=== PATIENT | female | born 1955 | race African-American/Black ===

== ENCOUNTER 2018-02-11 09:05 | Emergency (ER) | payer OTHER ==
[2018-02-11 09:11] VITALS: BP 116/69; PULSE 90; TEMP 98.3; BMI 29.0
--- NOTE | 2018-02-11 09:49 | PDOC ---
History of Present Illness - General Chief Complaint: Injury Stated Complaint: FOOT INJURY Time Seen by Provider: 02/11/18 09:40 History Source: Patient Exam Limitations: Clinical Condition - History of Present Illness Initial Comments: 02/11/18 09:47 Patient with no significant past medical history present with complain of pain to left fourth and fifth toes status post hitting it on a chair 3 days ago. Patient reported increased pain with ambulation. Denies any open wounds. Denies any other symptoms Timing/Duration: other (3 days) Past History - Past Medical History Allergies/Adverse Reactions: Allergies Allergy/AdvReac Type Severity Reaction Status Date / Time No Known Allergies Allergy Verified 02/11/18 09:09 Home Medications: Ambulatory Orders Ibuprofen 800 mg PO Q8H PRN #12 tablet 02/11/18 COPD: No - Immunization History Immunization Up to Date: No - Suicide/Smoking/Psychosocial Hx Smoking History: Never smoked Information on smoking cessation initiated: No Hx Alcohol Use: No Drug/Substance Use Hx: No Substance Use Type: None Review of Systems - Review of Systems Able to Perform ROS?: Yes Is the patient limited [place]uran proficient: No Constitutional: No: Chills, Diaphoresis, Fever, Loss of Appetite, Malaise, Night Sweats, Weakness, Weight Stable, Unintentional Wgt. Loss, Unexplained wgt Loss, Other HEENTM: No: Eye Pain, Blurred Vision, Tearing, Recent change in vision, Double Vision, Cataracts, Ear Pain, Ocular Prothesis, Ear Discharge, Nose Pain, Nose Congestion, Tinnitus, Nose Bleeding, Hearing Loss, Throat Pain, Throat Swelling , Mouth Pain, Dental Problems, Difficulty Swallowing, Mouth Swelling, Other Respiratory: No: Cough, Orthopnea, Shortness of Breath, SOB with Exertion, SOB at Rest, Stridor, Wheezing, Productive cough, Hemoptysis, Other Cardiac (ROS): No: Chest Pain, Edema, Irregular Heart Rate, Lightheadedness, Palpitations, Syncope, Chest Tightness, Other ABD/GI: No: Abdominal Distended, Abd. Pain w/ defecation, Blood Streaked Bowels , Constipated, Diarrhea, Difficulty Swallowing, Nausea, Poor Appetite, Poor Fluid Intake, Rectal Bleeding, Vomiting, Indigestion, Abdominal cramping, Tarry Stools, Other Musculoskeletal: Yes: See HPI, Joint Pain (left toes), Joint Swelling, Muscle Pain (left 4th and 5th toe). No: Muscle Weakness, Joint Stiffness All Other Systems: Reviewed and Negative *Physical Exam - Vital Signs Last Vital Signs Temp Pulse Resp BP Pulse Ox 98.3 F 90 18 116/69 100 02/11/18 09:09 02/11/18 09:09 02/11/18 09:09 02/11/18 09:09 02/11/18 09:09 - Physical Exam Comments: 02/11/18 09:49 GENERAL: Well developed, well nourished. Awake and alert. No acute distress. HEENT: Normocephalic, atraumatic. PERRLA, EOMI. No conjunctival pallor. Sclera are non- icteric. Moist mucous membranes. Oropharynx is clear. NECK: Supple. Full ROM. No JVD. Carotid pulses 2+ and symmetric, without bruits. No thyromegaly. No lymphadenopathy. CARDIOVASCULAR: Regular rate and rhythm. No murmurs, rubs, or gallops. Distal pulses are 2+ and symmetric. PULMONARY: No evidence of respiratory distress. Lungs clear to auscultation bilaterally. No wheezing, rales or rhonchi. ABDOMINAL: Soft. Non-tender. Non-distended. No rebound or guarding. No organomegaly. Normoactive bowel sounds. MUSCULOSKELETAL Normal range of motion at all joints. No bony deformities or tenderness. No CVA tenderness. EXTREMITIES: Moderate tenderness over the MCP and phalanges of left fourth and fifth toes and lateral distal side of left foot. No erythema or swelling to area. No cyanosis. No clubbing. No edema. No calf tenderness. SKIN: Warm and dry. Normal capillary refill. No rashes. No jaundice. NEUROLOGICAL: Alert, awake, appropriate. Cranial nerves 2-12 intact. No deficits to light touch and temperature in face, upper extremities and lower extremities. No motor deficits in the in face, upper extremities and lower extremities. Normoreflexic in the upper and lower extremities. Normal speech. Toes are down- going bilaterally. Gait is normal without ataxia. PSYCHIATRIC: Cooperative. Good eye contact. Appropriate mood and affect. General Appearance: Yes: Nourished, Appropriately Dressed. No: Apparent Distress Medical Decision Making - Medical Decision Making 02/11/18 09:51 Patient with no sig Past medical history present with complain of pain to left fourth and fifth toes status post toe contusion 3 days ago. Exam shows moderate tenderness to follow injuries of left fourth and fifth toe and lateral aspect of distal left foot. X-ray of left foot ordered to rule out any acute fracture. Treat based on imaging results 02/11/18 10:13 X-ray of left foot shows no acute fracture or pathology. Symptoms likely foot and toe sprain. Patient be discharged home on NSAIDs for symptoms with orthopedist follow-up as needed *DC/Admit/Observation/Transfer Diagnosis at time of Disposition: Sprain of foot, left Qualifiers: Encounter type: initial encounter Qualified Code(s): S93.602A - Unspecified sprain of left foot, initial encounter Contusion of toe of left foot Qualifiers: Encounter type: initial encounter Toe: lesser toe Damage to nail status: without damage Qualified Code(s): S90.122A - Contusion of left lesser toe(s) without damage to nail, initial encounter - Discharge Dispostion Disposition: HOME Condition at time of disposition: Stable Decision to Admit order: No - Prescriptions Prescriptions: Ibuprofen 800 mg PO Q8H PRN #12 tablet PRN Reason: toe pain - Referrals Referrals: Jarrett Lainez MD [Primary Care Provider] - Blake Franks MD [Staff Physician] - - Patient Instructions Printed Discharge Instructions: Contusion Additional Instructions: Take prescribed medication as needed for pain. Soak left foot in Epsom salts water to help was swelling and pain. Follow-up with podiatry as needed if symptoms persist for more than 5 days - Post Discharge Activity
== END 2018-02-11 10:20 | disposition home or self-care (01) ==
LOC: JERFT 09:05
DX: S93.602A Unspecified sprain of left foot, initial encounter (principal); S90.122A Contusion of left lesser toe(s) without damage to nail, initial encounter; W22.09XA Striking against other stationary object, initial encounter; Y93.89 Activity, other specified; Y92.89 Other specified places as the place of occurrence of the external cause; Y99.8 Other external cause status
CPT/HCPCS: 73630-TC-LT; 99281-25

== ENCOUNTER 2019-01-01 18:09 | Emergency (ER) | payer OTHER ==
--- NOTE | 2019-01-01 18:39 | PDOC ---
Rapid Medical Evaluation Time Seen by Provider: 01/01/19 18:35 Medical Evaluation: Allergies Allergy/AdvReac Type Severity Reaction Status Date / Time No Known Allergies Allergy Verified 02/11/18 09:09 01/01/19 18:37 This patient had a brief in-person evaluation in triage CC: swelling to right side of forehead above the eye since Sunday denies blurred vision, eye pain fever or chills PE: NAD +swelling above right eyebrow unlabored breathing orders:none This patient will proceed to the ED for further evaluation Discharge Disposition - Diagnosis Insect bite - Referrals - Patient Instructions - Post Discharge Activity
[2019-01-01 18:45] VITALS: BP 126/70; PULSE 78; TEMP 98.3; BMI 28.2
[2019-01-01] MEDS ORDERED: predniSONE 20 MG TABLET (UD) PO ONE (18:51)
[2019-01-01] MEDS ORDERED: predniSONE 20 MG TABLET (UD) ONE (18:55)
--- NOTE | 2019-01-01 19:00 | PDOC ---
History of Present Illness - General Chief Complaint: Allergic Reaction Stated Complaint: ALLERGIC REACTION Time Seen by Provider: 01/01/19 18:35 History Source: Patient - History of Present Illness Timing/Duration: other Severity: moderate Past History - Past Medical History Allergies/Adverse Reactions: Allergies Allergy/AdvReac Type Severity Reaction Status Date / Time No Known Allergies Allergy Verified 02/11/18 09:09 Home Medications: Ambulatory Orders Ibuprofen 800 mg PO Q8H PRN #12 tablet 02/11/18 Prednisone [Deltasone] 20 mg PO DAILY #39 tablet 01/01/19 COPD: No - Immunization History Immunization Up to Date: No - Suicide/Smoking/Psychosocial Hx Smoking History: Never smoked Have you smoked in the past 12 months: No Information on smoking cessation initiated: No Hx Alcohol Use: No Drug/Substance Use Hx: No Substance Use Type: None Review of Systems - Review of Systems Constitutional: No: Chills, Fever HEENTM: No: Eye Pain, Blurred Vision Integumentary: Yes: Pruritus, Rash *Physical Exam - Vital Signs Last Vital Signs Temp Pulse Resp BP Pulse Ox 98.3 F 78 16 126/70 100 01/01/19 18:38 01/01/19 18:38 01/01/19 18:38 01/01/19 18:38 01/01/19 18:38 - Physical Exam General Appearance: Yes: Appropriately Dressed. No: Apparent Distress HEENT: positive: Normal Voice, Other (erythematous papules w/ generalized swelling to R periorbital area, no sig ttp, conjunc clear) Neck: positive: Supple. negative: Lymphadenopathy (R), Lymphadenopathy (L) Respiratory/Chest: negative: Respiratory Distress Integumentary: positive: Dry, Warm Neurologic: positive: Fully Oriented, Alert, Normal Mood/Affect Medical Decision Making - Medical Decision Making 01/01/19 18:58 63 yo F, no sig hx, here w/ swelling and itching around R eye that pt noticed shortly having pulling up "poison nelida" in her garden 3 days ago. Denies pain inside eye and no fb sensation or visual changes. No prior allergic rxn to poison nelida See exam Local allergic rxn to R periorbital area Etiology uncertain but was exposed to poison nelida prior to onset -Will start on po steroid taper and have pt apply cool compresses freq -To return in 2 days for reassessment *DC/Admit/Observation/Transfer Diagnosis at time of Disposition: Allergic reaction Qualifiers: Encounter type: initial encounter Qualified Code(s): T78.40XA - Allergy, unspecified, initial encounter - Discharge Dispostion Disposition: HOME Condition at time of disposition: Good - Prescriptions Prescriptions: Prednisone [Deltasone] 20 mg PO DAILY #39 tablet - Referrals Referrals: Jarrett Lainez MD [Primary Care Provider] - - Patient Instructions Printed Discharge Instructions: DI for General Allergic Reactions Additional Instructions: It appears that you are experiencing an allergic reaction around your right eye The cause of this reaction is unclear but as you were exposed to poison nelida, we have started you on oral prednisone given face involvement We gave you the first dose today. Take the rest as directed Also apply cool, wet compresses to site frequently throughout the day Return in 2 days for reassessment - Post Discharge Activity
== END 2019-01-01 19:04 | disposition home or self-care (01) ==
LOC: JERFT 18:09
DX: T78.40XA Allergy, unspecified, initial encounter (principal)
CPT/HCPCS: 99281-25

== ENCOUNTER 2019-01-07 09:37 | Emergency (ER) | payer OTHER ==
[2019-01-07 09:58] VITALS: TEMP 98.4; BMI 25.8
--- NOTE | 2019-01-07 10:17 | PDOC ---
History of Present Illness - General Chief Complaint: Vision Loss,Bilateral Stated Complaint: SHINGLES RASH Time Seen by Provider: 01/07/19 10:16 - History of Present Illness Initial Comments: 01/07/19 11:44 HPI: 64 y/o F with no pmh presenting following a recent diagnosis of shingles with a V1 distribution now associated with BL visual impairment. She went hiking last week and stated the following morning she had right periorbital rash and swelling. She came to the ED and was prescribed prednisone on 01/01/19 She returned to the ED on 01/03 with worsening rash over V1 and right facial swelling and left periorbital swelling and was diagnosed with shingles and given valacyclovir. She returns to the ED today because she now has change in her vision including blurriness and double vision. She states she is at 60% of her normal vision. She normally only uses reading glasses for reading, but states she now needs her glasses in order to see anything at all. She also sees floaters, and has a dark area around her peripheral vision. She denies fever, chills, WAL[place], LH, dizziness, chest pain, SOB, nausea, emesis, abd pain, syncope, falls. No other rash anywhere else on her body. PMHx: as noted above ROS: as noted SHx: Denies Etoh, IVDA, tobacco use Allergies: NKDA Past History - Past Medical History Allergies/Adverse Reactions: Allergies Allergy/AdvReac Type Severity Reaction Status Date / Time No Known Allergies Allergy Verified 01/07/19 09:55 Home Medications: Ambulatory Orders Valacyclovir HCl [Valtrex] 1,000 mg PO TID #21 tablet 01/03/19 Dextran 70/Hypromellose [Artificial Tears] 1 each OP Q3H5XD #1 droperette COPD: No - Immunization History Immunization Up to Date: No - Suicide/Smoking/Psychosocial Hx Smoking History: Unknown if ever smoked Have you smoked in the past 12 months: No Hx Alcohol Use: No Drug/Substance Use Hx: No Substance Use Type: None Review of Systems - Review of Systems Comments:: 01/07/19 12:45 GENERAL/CONSTITUTIONAL: No fever or chills. No weakness. HEAD, EYES, EARS, NOSE AND THROAT: +change in vision. No ear pain or discharge. No sore throat. CARDIOVASCULAR: No chest pain or shortness of breath RESPIRATORY: No cough, wheezing, or hemoptysis. GASTROINTESTINAL: No nausea, vomiting, diarrhea or constipation. GENITOURINARY: No dysuria, frequency, or change in urination. MUSCULOSKELETAL: No joint or muscle swelling or pain. No neck or back pain. SKIN: +rash NEUROLOGIC: No headache, vertigo, loss of consciousness, or change in strength/ sensation. ENDOCRINE: No increased thirst. No abnormal weight change HEMATOLOGIC/LYMPHATIC: No anemia, easy bleeding, or history of blood clots. ALLERGIC/IMMUNOLOGIC: No hives or skin allergy. *Physical Exam - Vital Signs Last Vital Signs Temp Pulse Resp BP Pulse Ox 98.4 F 111 H 18 102/66 97 01/07/19 09:56 01/07/19 09:56 01/07/19 09:56 01/07/19 09:56 01/07/19 09:56 - Physical Exam Comments: 01/07/19 13:06 GENERAL: Awake, alert, and fully oriented, in no acute distress HEAD/FACE: Right facial rash (scab) covering V1 distribution; sensation intact but decreased sensation on the right side of the face compared to the left with diminished pinprick; right facial edema with pronounced periorbitally but also with left periorbital edema EYES: PERRLA, EOMI, sclera anicteric, conjunctiva clear; noncorrected vision 70/ 20 bilaterally and corrected vision 40/20 bilaterally; tocometer deferred at this time; visual shelley grossly intact; red reflex present on ophthalmoscope; fluorescein negative ENT: Auricles normal inspection, hearing grossly normal, nares patent, oropharynx clear without exudates. Moist mucosa NECK: Normal ROM, supple, no lymphadenopathy, JVD, or masses LUNGS: No distress, speaks full sentences, clear to auscultation bilaterally HEART: Regular rate and rhythm, normal S1 and S2, no murmurs, rubs or gallops, peripheral pulses normal and equal bilaterally. ABDOMEN: Soft, nontender, normoactive bowel sounds. No guarding, no rebound. No masses EXTREMITIES : Normal inspection, Normal range of motion, no edema. No clubbing or cyanosis. NEUROLOGICAL: Cranial nerves II through XII grossly intact. Normal speech, normal gait, no focal sensorimotor deficits SKIN: Warm, Dry, normal turgor, no rashes or lesions noted Medical Decision Making - Medical Decision Making 01/07/19 13:13 64 y/o F with no pmh presenting following a recent diagnosis of shingles with a V1 distribution now associated with BL visual impairment. Physical exam notable for rash present over V1 distribution with no weeping or drainage, right facial swelling. Visual exam with decreased visual acuity, EOMI, PERRLA, fluorescein negative for lesions -consulted ophtho; spoke to Dr Gallegos and appt made for tomorrow at 1pm at [address] [place] [address] -patient will continue to take valtrex -per Dr Godinez recs, patient to take artifical tear q2-3hrs until tomorrow -Patient will be DCd home and is comfortable with instructions *DC/Admit/Observation/Transfer Diagnosis at time of Disposition: Blurred vision, bilateral Zoster Qualifiers: Herpes zoster complications: unspecified herpes zoster complication Qualified Code(s): B02.8 - Zoster with other complications - Discharge Dispostion Condition at time of disposition: Stable Decision to Admit order: No - Prescriptions Prescriptions: Dextran 70/Hypromellose [Artificial Tears] 1 each OP Q3H5XD #1 droperette - Referrals Referrals: Jarrett Lainez MD [Primary Care Provider] - Paul Gallegos MD [Staff Physician] - - Patient Instructions Printed Discharge Instructions: DI for Shingles, DI for Double Vision Additional Instructions: Additional Instructions: Please return to the emergency department with any new or worsening symptoms or concerns including blindness, severe headache, uncontrolled vomiting Please follow up with Dr Gallegos (home health administrator) tomorrow at his office located at [address] [place] [address]; your appt has been made at 1pm Please arrive 15 minutes early for paperwork and registration Please continue valtrex 3 times a day Please purchase artificial tears; script has been sent to your pharmacy Please add ice compresses to the right side of your face frequently throughout the day until you see Dr Gallegos to improve the swelling - Post Discharge Activity
--- NOTE | 2019-01-07 10:58 | PDOC ---
Attending Attestation - Resident Resident Name: Susan Poe - ED Attending Attestation I have performed the following: I have examined & evaluated the patient, The case was reviewed & discussed with the resident, I agree w/resident's findings & plan, Exceptions are as noted - HPI HPI: 01/07/19 10:58 64y F recent dx of zoster presents with complaint of blurry.double vision bilaterally, pt was seen in the ED originaly thought to be dermatitis was started on prednisone, rturned and was dx with zoster and started on valtrex and d/c to fu with pmd and ophtho. Pt never followed up with optho, but starting 2 days ago, pt noticed difficulty seeing further away with double/ blurry bilaterally when watching tv and seeing computer screen, was not sudden in onset. This sems to resolve with glasses use. denies any fever/chills, headache, eye pain, fb sensation, neck pain, ear pain. pt denies any flashing lights exam: +eschar/scabs on the R forhead along the V1 distrubtion no rash on nare/tip of nose no floursicene uptake b/l, EOMI, visual shelley intact by direct confrontation, consider possible zoster opthalmicus, howeve rno uptake. with improvement with glasses, consider worsening near sightedness. will refer to ophtho return prcautions were discused - Physicial Exam PE: 01/09/19 07:27 see above - Medical Decision Making 01/09/19 07:27 see above
[2019-01-07] MEDS ORDERED: FLUORESCEIN NA 1 EA STRIP NR ONE (11:31)
[2019-01-07] MEDS ORDERED: TETRACAINE 0.5% HCL 0.6ML DROPPER.BOTTLE OD ONE (11:33)
[2019-01-07] MEDS ORDERED: FLUORESCEIN NA 1 EA STRIP ONE (11:36)
[2019-01-07] MEDS ORDERED: TETRACAINE 0.5% OPHTH SOLN 2 ML BOTTLE ONE (11:36)
[2019-01-07 13:52] VITALS: BP 124/78; PULSE 92
== END 2019-01-07 13:50 | disposition home or self-care (01) ==
LOC: JER 09:37
PROC: 4A07X0Z Measurement of Visual Acuity, External Approach (ICD-10-PCS; principal; 2019-01-07)
DX: B02.8 Zoster with other complications (principal); H53.8 Other visual disturbances
CPT/HCPCS: 99173; 99282-25

== ENCOUNTER 2023-08-14 15:26 | Emergency (ER) | payer OTHER ==
[2023-08-14 15:42] VITALS: TEMP 98.2; BMI 29.5
[2023-08-14 17:33] VITALS: BP 128/80; PULSE 90; RESP 14
== END 2023-08-14 17:41 | disposition home or self-care (01) ==
LOC: JERFT 15:26
DX: M79.671 Pain in right foot (principal); M77.31 Calcaneal spur, right foot; X50.0XXA Overexertion from strenuous movement or load, initial encounter; Y92.009 Unspecified place in unspecified non-institutional (private) residence as the place of occurrence of the external cause; Y93.01 Activity, walking, marching and hiking
CPT/HCPCS: 73630-TC-RT-FY; 99283-25